=== PATIENT | male | born 1945 | race Caucasian/White ===

== ENCOUNTER → 2025-02-19 11:30 | Outpatient (REF) | payer MEDICARE, SELFPAY ==
--- OUTSIDE RECORDS SUMMARY | 2025-02-19 13:25 | XMS_ITS | Encounter Summary ---
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, including shoulder Social History Tobacco Use Types Packs/Day Years Used Date Smoking Tobacco: Never Assessed Sex and Gender Information Value Date Recorded Sex Assigned at Not on file Gender Identity Not on file Sexual Orientation Not on file documented as of this encounter Plan of Treatment Not on file documented as of this encounter Procedures Procedure Name Priority Date/Time Associated Diagnosis Comments DERMATOPATHOLOGY Routine 04/27/2023 12:0 0 AM CDT Basal cell carcinoma of skin of right upper limb, including shoulder [ICD-10-CM] documented in this encounter Results * DERMATOPATHOLOGY (04/27/2023 12:00 AM CDT) Case Report Dermatopathology Report Case: [id number] Authorizing Provider: Kar Newell MD Collected: 04/27/2023 12:00 AM Ordering Location: [facility] DermPath Lab Received: 04/28/2023 12:24 PM Pathologist: Marti Coughlin MD Specimen: Skin, right upper arm 4:20 PM CDT DERMATOPATHOLOGY LABORATORY Final Diagnosis Specimen A. 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 The specimen consists of a non-oriented ellipse of skin measuring [id number] mm. The epidermal surface is unremarkable. The margin is inked green. The 12 o'clock and 6 o'clock tips are submitted in cassette 1. The remainder of the ellipse is serially sectioned and submitted in cassette 2-3. Jar 0. 3 4:20 PM T DERMATOPATHOLOGY LABORATORY Microscopic Description Specimen A. SKIN, right upper arm: Within the dermis there are aggregates of basaloid cells with a high nuclear to cytoplasmic ratio and peripheral palisading. This lesion is not present at the margin of the specimen. There are fibroblasts and collagen bundles oriented parallel to the skin surface with elongated blood vessels, some of which are oriented perpendicular to the skin surface. In block 3, there are nests of cytologically bland melanocytes within the dermis. Some of these melanocytes are concentrated around blood vessels and adnexal structures. This lesion is present at one lateral margin of the specimen. 3 4:20 PM CDT DERMATOPATHOLOGY LABORATORY Disclaimer An external and internal positive and negative controls are appropriate for the histochemical, immunohistochemical and immunofluorescence stain(s) in this case (if any), except where stated explicitly. The performance characteristics of the stain(s) cited in this report were developed and its performance characteristic determined by the Dermatopathology Laboratory at [facility], directed by Dr. Mckay Coughlin. These tests need not be, and therefore are not, approved by the [place] Food and Drug Administration. The tests are used for clinical purposes. Billing Codes Specimen Charges Stain Charges 97005 1 3 4:20 PM CDT DERMATOPATHOLOGY LABORATORY Embedded Images 3 4:20 PM CDT DERMATOPATHOLOGY LABORATORY Pathology/Cytolog y TISSUE SPECIMEN FROM SKIN / Unknown 04/27/2023 04/28/2023 12:24 PM CDT Kar Newell MD LAB - PATHOLOGY/CYTO LOGY ORDERABLES DERMATOPATHOLOGY LABORATORY [facility] - Department of Dermatology [address] [phone] documented in this encounter Visit Diagnoses Diagnosis Basal cell carcinoma of skin of right upper limb, including shoulder Basal cell carcinoma of skin of upper limb, including shoulder documented in this encounter
--- OUTSIDE RECORDS SUMMARY | 2025-02-19 13:25 | XMS_ITS | Referral Summary ---
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 (Primary Dx); Hypertension associated with diabetes (HCC); Hyperlipidemia associated with type 2 diabetes mellitus (HCC) 01/01/2025 10:30 AM BAND TOP MAKER Office Visit [facility] Diabetes Endocrine Care at [address] [address] Freddie Yeung, Type 2 diabetes mellitus with other specified complication, without long-term current use of insulin (HCC) (Primary Dx); Hyperlipidemia associated with type 2 diabetes mellitus (HCC); Hypertension associated with diabetes (HCC) 12/25/2024 Telephone [facility] Gastroenterology at [address] [place] [address] Keenan Pretty DO 12/25/2024 8:00 AM BAND TOP MAKER Office Visit [facility] [address] [address] Arminda Andrews NP Encounter for annual wellness exam in Medicare patient (Primary Dx); Hypertension associated with type 2 diabetes mellitus (HCC); Hyperlipidemia associated with type 2 diabetes mellitus (HCC); Hypertension associated with diabetes (HCC); Type 2 diabetes mellitus without complication, without long-term current use of insulin (HCC); History of colon polyps; Obstructive sleep apnea syndrome in adult; BMI 27.0-27.9,adult 12/18/2024 8:25 AM BAND TOP MAKER Lab [facility] [address] [place] [address] Hypertension associated with type 2 diabetes mellitus (HCC); Hyperlipidemia associated with type 2 diabetes mellitus (HCC); Encounter for annual wellness exam in Medicare patient 12/15/2024 Telephone [facility] [address] [place] [address] Candace Corey MA Labs Requested for Appointment from Last 3 Months Allergies No known active allergies Medications aspirin 81 mg tablet take 1 tablet (81MG) by ORAL route every day 0 09/19/20 10 Active pen needle, diabetic 32 gauge x 1/6 needle Use as directed with victoza daily 100 each 3 10/04/20 19 Active BD Ultra-Fine Micro Pen Needle 32 gauge x 1/4 needle USE TO INJECT VICTOZA DAILY DIRECTED 100 each 3 01/14/20 23 Active blood glucose diagnostic stripIndicatio ns:Type 2 diabetes mellitus without complication, without long-term current use of insulin ([facility]) Use to test blood sugars daily 100 each 2 06/05/20 24 Active lisinopril-hyd roCHLOROthiazi de (ZESTORETIC) 20-25 mg per tabletIndicati ons:Hypertensi on associated with type 2 diabetes mellitus (HCC) TAKE 1 TABLET BY MOUTH EVERY DAY 90 tablet 3 07/28/20 24 Active carvediloL (COREG) 25 mg tablet TAKE ONE TABLET BY MOUTH TWICE A DAY WITH MEALS DIRECTED 180 tablet 1 11/28/19 25 Active clopidogreL (PLAVIX) 75 mg tablet TAKE 1 TABLET BY MOUTH EVERY DAY 90 tablet 3 12/11/19 25 Active atorvastatin (LIPITOR) 80 mg tablet TAKE 1 TABLET BY MOUTH EVERY DAY 90 tablet 3 12/21/19 25 Active ezetimibe (ZETIA) 10 mg tablet TAKE 1 TABLET BY MOUTH EVERY DAY 90 tablet 4 12/20/19 25 Active tamsulosin (FLOMAX) 0.4 mg extended release capsule TAKE 1 CAPSULE BY MOUTH EVERY DAY 90 capsule 1 12/20/19 25 Active tirzepatide (Mounjaro) 10 mg/0.5 mL pen injector injection Inject 0.5 mL (10 mg total) under the skin every 7 days 2 mL 3 12/25/[address] (PROTONIX) 40 mg EC tablet TAKE 1 TABLET BY MOUTH EVERY DAY 100 tablet 12/29/19 25 Active metFORMIN XR (GLUCOPHAGE XR) 500 mg 24 hr tablet Take 2 tablets (1,000 mg total) by mouth 2 (two) times a day after breakfast and dinner 180 tablet 3 01/01/20 25 026 Active Jardiance 25 mg tablet Take 1 tablet (25 mg total) by mouth daily 30 tablet 11 01/01/20 25 026 Active blood-glucose sensor (FreeStyle Travis 3 Sensor) device USE DIRECTED TO CHECK BLOOD GLUCOSE 3-4 TIMES DAILY. 2 each 1 02/03/20 25 Active blood-glucose sensor (FreeStyle Travis 3 Sensor) device USE DIRECTED TO CHECK BLOOD GLUCOSE 3-4 TIMES DAILY. 2 each 1 12/07/19 25 025 Discontinued Active Problems Problem Noted Date Diagnosed Date History of colon polyps 12/25/2024 Assessment & Plan (12/25/2024 8:39 AM BAND TOP MAKER): Mild anemia on labs. He is past due for colonoscopy. He states they have been reaching out to him. He is agreeable to schedule. History of colonic polyps 12/25/2024 Encounter for screening colonoscopy 12/25/2024 Chronic diastolic congestive heart failure BMI 25.0-25.9,adult 12/20/2023 Coronary artery disease invo lving assiniboine and sioux coronary artery of assiniboine and sioux heart without angina pectoris 07/07/2022 Abnormal stress test 11/26/2021 Overview (11/26/2021): Added automatically from request for surgery [id number] BMI 28.0-28.9,adult 09/15/2021 Assessment & Plan (09/15/2021 8:27 AM CDT): Discussed healthy diet and importance of regular physical activity. Encounter for annual wellness exam in Medicare p atient 09/15/2021 Assessment & Plan (12/25/2024 8:38 AM BAND TOP MAKER): Visit preventive in nature. We reviewed medications, chronic conditions, risk factors, lifestyle recommendations. Reviewed immunization recommendations. Follow-up in 6 months for chronic conditions and 1 year for annual wellness. Assessment & Plan (12/20/2023 8:34 AM BAND TOP MAKER): Visit preventive in nature. We reviewed medications, chronic conditions, risk factors, lifestyle recommendations. Reviewed immunization recommendations. Follow-up in 6 months for chronic conditions and 1 year for annual wellness. Assessment & Plan (09/15/2021 8:28 AM CDT): Preventive exam; reviewed recommended preventive screenings and vaccinations. Encourage annual flu vaccine. Wear sunscreen/protective clothing when outdoors. Trace cataracts 09/15/2021 Assessment & Plan (09/15/2021 8:27 AM CDT): Was informed that he will likely need surgical intervention, requesting referral today. Benign prostatic hyperplasia with urinary freque ncy 09/15/2021 Assessment & Plan (09/15/2021 8:38 AM CDT): Doing well on tamsulosin. Denies dysuria. Bilateral impacted cerumen 09/15/2021 Assessment & Plan (09/15/2021 8:50 AM CDT): Removed by irrigation today, patient tolerated will without complications. Hyperlipidemia associated with type 2 diabetes gavin horton 12/09/2020 Assessment & Plan (12/25/2024 8:38 AM BAND TOP MAKER): LDL 55. Continue atorvastatin and ezetimibe. Assessment & Plan (07/05/2024 9:30 AM CDT): Well controlled on atorvastatin and ezetimibe. Tolerating without side effects. No changes. Will continue to monitor. Assessment & Plan (12/20/2023 8:33 AM BAND TOP MAKER): Secondary prevention. Reviewed medications. Lipid panel ordered; will call w/results when rec'd. Denies any statin Ses. Reviewed diet/exercise recommendations. Reviewed red flags. Assessment & Plan (09/15/2021 9:43 AM CDT): Reviewed need to decrease carbs and concentrated sweets. Discussed diet and exercise recommendations. Will repeat lipid panel prior to next OV in 3 months. No changes in medications at this time. 06/2021 LDL=86 Need for vaccination 04/10/2020 Assessment & Plan (09/15/2021 8:47 AM CDT): Patient received influenza vaccine, will request records. Assessment & Plan (04/10/2020 8:33 AM CDT): Tdap ordered for this visit Gastroesophageal reflux disease without esophagi tis 01/08/2020 Assessment & Plan (09/15/2021 8:48 AM CDT): Continues omeprazole 20mg. Assessment & Plan (04/10/2020 8:30 AM CDT): Stable on current medication. Assessment & Plan (01/08/2020 11:21 AM BAND TOP MAKER): Controlled with medication and watch diet. 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 Reviewed heart healthy lifestyle. Will continue to monitor. Assessment & Plan (07/05/2024 9:22 AM CDT): Well controlled on carvedilol, lisinopril/hydrochlorothiazide. No changes. Will continue to monitor. Assessment & Plan (12/20/2023 8:33 AM BAND TOP MAKER): Normotensive. Continue multiple medication regimen. Reviewed lifestyle recommendations. Will continue to monitor. Assessment & Plan (09/15/2021 8:35 AM CDT): BP well controlled today. Reviewed BP goal <140/90. Watch sodium in diet, <2400mg. Assessment & Plan (04/10/2020 8:29 AM CDT): Stable and controlled today. Type 2 diabetes mellitus 03/31/2014 Overview (02/17/2017): DMII WO CMP NT ST UNCNTR Assessment & Plan (12/25/2024 8:37 AM BAND TOP MAKER): A1c 7.5. Unchanged. Reports high blood sugars at home. Reviewed diet and exercise recommendations. Reviewed small frequent meals. Will uptitrate Mounjaro. Will refer to endocrinology as well. Red flags reviewed. He is in agreement with plan states understanding. Assessment & Plan (07/05/2024 9:22 AM CDT): A1c has gone up. 7.5%. He is interested in up titrating Mounjaro. Hopeful it will be easier to obtain with the supply issues as well. Will monitor blood glucose closely. Red flags reviewed as well. He is in agreement with plan and states understanding. Assessment & Plan (12/20/2023 8:33 AM BAND TOP MAKER): A1c today 6.4%. Will continue current medication regimen. Recommend referral to clinical trial educator but he declines. Reviewed eating regular meals to avoid hypoglycemia. Reviewed red flags. He is in agreement with plan and states understanding. Assessment & Plan (09/15/2021 9:39 AM CDT): A1c improved. Patient not making any dietary changes. Reviewed need to reduce concentrated sweets and monitor portion sizes. No changes in medications at this time. Will continue to follow a1c. Follow up in 3 months. Lab Results Component Value Date HGBA1C 7.6 09/15/2021 HGBA1C 8.8 (H) 06/18/2021 HGBA1C 8.8 (H) 03/10/2021 Assessment & Plan (04/10/2020 8:30 AM CDT): Will await pending labs. Review diabetic diet. Assessment & Plan (01/08/2020 11:22 AM BAND TOP MAKER): Will await labs to fruit and vegetable parer response to Victoza. May consider referral to Endocrinology. Hypersomnia with sleep apnea 02/02/2012 Overview (02/17/2017): Hypersomnia with sleep apnea Obstructive sleep apnea syndrome in adult 2011 Overview (02/19/2017): Obstructive sleep apnea syndrome in adult Assessment & Plan (12/25/2024 8:38 AM BAND TOP MAKER): 100% compliant with CPAP and will continue. Assessment & Plan (09/15/2021 8:35 AM CDT): Nightly cpap use. Follows with Dr. Tong every 6 months. Resolved Problems Problem Noted Date Diagnosed Date Resolved Date Body mass index 25-29 - overweight 05/21/2016 09/15/2021 Overview (02/19/2017): Overweight (BMI 25.0-29.9) Hyperlipidemia 03/31/2014 09/15/2021 Overview (02/19/2017): HYPERLIPIDEMIA NEC/NOS Assessment & Plan (04/10/2020 8:30 AM CDT): Reviewed diet. Will continue statin. Adiposity 02/02/2012 09/15/2021 Overview (02/17/2017): Obesity Immunizations Immunization Administration Dates Next Due Influenza LAIV (Nasal) 08/16/2014,08/16/2014 Influenza, Quad, Adjuvantate d, Intramuscular 08/10/2023,08/23/2021 Influenza, Quadrivalent, Hig h Dose, Preservative Free, Intrr 08/04/2022,07/19/2020 Influenza, Quadrivalent, Spl it, Preservative Free, Intradermal 08/30/2017 Influenza, Quadrivalent, Spl it, Preservative Free, Intramuscular 10/15/2016 Influenza, Split 11/22/2013,09/19/2010 Influenza, Trivalent, Adjuva nted, Intramuscular 08/29/2017 Influenza, Trivalent, High D ose, Split, Preservative Free, Intramuscular 08/07/2024,09/01/2019,08/24/2018,08/20 Influenza, Trivalent, IM (MDV) 09/03/2015,2011 Influenza, Trivalent, Preser vative Free, Intramuscular 11/22/2013 Influenza, Unspecified 08/15/2021 Moderna SARS-CoV-2 Monovalen t Vaccination (12+ YRS) 02/17/2022,01/06/2021,12/06/2020 Pneumococcal Conjugate PCV 13 09/24/2017 Pneumococcal Conjugate, Unspecified 09/25/2019(D eferred: Patient Refused) Pneumococcal Polysaccharide PPV23 2020,06/2011 RSV Vaccine, Pref, Recombina nt, Subunit, Adjuvanted, PF, IM (Arexvy) 08/07/2024 Td, adsorbed 08/15/2007 Tdap 04/10/2020,04/10/2020 ZOSTER Recombinant 03/03/2019,08/24/2018 Social History Tobacco Use Types Packs/Day Years Used Date Smoking Tobacco: Former Cigarettes Q uit: 1970 Smokeless Tobacco: Never Tobacco Cessation:Counseling Given: Not Answered Alcohol Use Standard Drinks/Week Comments No 0 (1 standard drink = 0.6 oz pur e alcohol) Social Connection and Isolat ion Panel [NHANES] Answer Date Recorded In a typical week, how many times do you talk on the phone with family, friends, or neighbors? More than three times a week 12/08/2022 Frequency of Social Gatherin gs with Friends and Family Not on file 12/08/2022 Attends Orthodox Services Not on file 12/08 Active Member of Clubs or Organizations Not on f ile 12/08/2022 Attends Club or Organization Meetings Not on roxanne e 12/08/2022 Are you , , di vorced, , never , or living with a partner? 12/08/2022 AUDIT-C Answer Date Recorded Q1: How often do you have a drink containing alc ohol? Monthly or less 12/20/2023 Q2: How many drinks containi ng alcohol do you have on a typical day when you are drinking? 1 or 2 12/20/2023 Q3: How often do you have si x or more drinks on one occasion? Never 12/20/2023 Overall Financial Resource Strain (CARDIA) Answe r Date Recorded How hard is it for you to pa y for the very basics like food, housing, medical care, and heating? Not hard at all 11/23/2022 PHQ-2 Answer Date Recorded PHQ-2 Total Score (If total score is 3 or more points, staff should administer the PHQ-9) 0 12/25/2024 [facility] - Occupational Stress Questionnaire Answer Date Recorded Do you feel stress - tense, restless, nervous, or anxious, or unable to sleep at night because your mind is troubled all the time - these days? Patient declined 11/23/2022 Exercise Vital Sign Answer Date Recorde d On average, how many days pe r week do you engage in moderate to strenuous exercise (like a brisk walk)? 2 days 11/23/2022 On average, how many minutes do you engage in exercise at this level? 20 min 11/23/2022 Hunger Vital Sign Answer Date Recorded Within the past 12 months, y ou worried that your food would run out before you got the money to buy more. Never true 11/23/19 23 Within the past 12 months, t he food you bought just didn't last and you didn't have money to get more. Never true 11/23/2022 PRAPARE - Transportation Answer Date Re corded In the past 12 months, has l ack of transportation kept you from medical appointments or from getting medications? No 07/2023 In the past 12 months, has l ack of transportation kept you from meetings, work, or from getting things needed for daily living? No 11/23/2022 Personal Safety Answer Date Recorded Have you ever been in or are you currently in a harmful physical or emotional relationship or is someone making you feel afraid or unsafe? Denies 01/28/2024 Sex and Gender Information Value Date Recorded Sex Assigned at Not on file Legal Sex Male 11:50 PM BAND TOP MAKER Gender Identity Not on file Sexual Orientation Not on file Last Filed Vital Signs Vital Sign Reading Time Taken Comments Blood Pressure 105/67 01/29/2025 8:12 AM CDT Pulse 84 01/29/2025 8:12 AM CDT Temperature 36.3 C (97.4 F) 12/25/2024 7:46 AM BAND TOP MAKER Respiratory Rate 18 01/29/2025 8:12 AM CDT Oxygen Saturation 98% 12/25/2024 7:46 AM BAND TOP MAKER Inhaled Oxygen Concentration - - Weight 78.9 kg (174 lb) 01/29/2025 8:12 AM CDT Height 170.2 cm (5' 7 ) 01/29/2025 8:12 AM CDT Body Mass Index 27.25 01/29/2025 8:12 AM CDT Plan of Treatment Upcoming Encounters Date Type Department Care Team (Late st Contact Info) Description 04/11/2025 12:45 PM CDT Hospital Encounter [address] [address] Keenan Pretty DO [address] [place] [address] 04/11/2025 12:45 PM CDT - 04/11/2025 1:15 PM CDT Surgery [address] [address] Keenan Pretty DO [address] [place] [place] [address] COLONOSCOPY Scheduled Procedures Name Priority Associated Diagnoses Date/Ti me COLONOSCOPY History of colonic polyps Encounter for screening colonoscopy 04/11/2025 12:45 PM CDT Medical Devices Implanted Type Area Quality Facilitator Device Identifier Shelf Expiration Date Model / Serial / Lot [employer] [id number] Synergy 2.75mm 28mm 144cm Radiopaque 1 Access Port Inflation - [id number] Implanted:Qty: 1 on 11/27/2021 by Lalito Garcia MD at [facility] Other - see comments [employer] 09/10/2022 [id number] / / [id number] [employer] [id number] Angio-Seal Evolution 6fr .035in Guidewire Bypass Tube Suture - [id number] Implanted:Qty: 1 on 11/27/20[facility] [id number] / / [id number] [employer]amm[employer] Renita Angio-Seal Vip 6fr Closere Device [id number] - [id number] Implanted:Qty: 1 on 01/28/2024 [facility] 09/30/2024 [id number] / / [id number] Procedures Procedure Name Priority Date/Time Associated Diagnosis Comments EGFR Routine 12/18/2024 8:27 AM BAND TOP MAKER Hypertension associated with type 2 diabetes mellitus (HCC) Hyperlipidemia associated with type 2 diabetes mellitus (HCC) Encounter for annual wellness exam in Medicare patient DIFFERENTIAL AUTO Routine 12/18/2024 8:2 7 AM BAND TOP MAKER Hypertension associated with type 2 diabetes mellitus (HCC) Hyperlipidemia associated with type 2 diabetes mellitus (HCC) Encounter for annual wellness exam in Medicare patient CBC WITH AUTO DIFFERENTIAL Routine 12/18/2024 8:27 AM BAND TOP MAKER Hypertension associated with type 2 diabetes mellitus (HCC) Hyperlipidemia associated with type 2 diabetes mellitus (HCC) Encounter for annual wellness exam in Medicare patient COMPREHENSIVE METABOLIC PANEL Routine 12/18/2024 8:27 AM BAND TOP MAKER Hypertension associated with type 2 diabetes mellitus (HCC) Hyperlipidemia associated with type 2 diabetes mellitus (HCC) Encounter for annual wellness exam in Medicare patient LIPID PANEL Routine 12/18/2024 8:27 AM BAND TOP MAKER Hypertension associated with type 2 diabetes mellitus (HCC) Hyperlipidemia associated with type 2 diabetes mellitus (HCC) Encounter for annual wellness exam in Medicare patient HEMOGLOBIN A1C Routine 12/18/2024 8:27 AM BAND TOP MAKER Hypertension associated with type 2 diabetes mellitus (HCC) Hyperlipidemia associated with type 2 diabetes mellitus (HCC) Encounter for annual wellness exam in Medicare patient ALBUMIN CREATININE RATIO, URINE Routine 12/18/2024 8:27 AM BAND TOP MAKER Hypertension associated with type 2 diabetes mellitus (HCC) Hyperlipidemia associated with type 2 diabetes mellitus (HCC) Encounter for annual wellness exam in Medicare patient DIABETIC EYE EXAM Routine 07/04/2024 STOOL DNA COLOGUARD Routine 01/05/2022 10:00 AM BAND TOP MAKER Colon cancer screening HEPATITIS C ANTIBODY Routine 2020 10:12 AM CDT Encounter for hepatitis C screening test for low risk patient COLONOSCOPY REPORT 05/20/2017 CT ABDOMEN PELVIS W CONTRAST Routine 10/14/2016 8:35 AM BAND TOP MAKER from Last 3 Months or Most Recently Relevant to Health Maintenance Results * eGFR (12/18/2024 8:27 AM BAND TOP MAKER) eGFR 89 >=60 mL/min/1. 73 m2 Comment: Interpretive Data Reference Interval Normal >/= 90 mL/min/1.73m2 Mildly decreased* 60 - 89 mL/min/1.73m2 Mildly to moderately decreased 45 - 59 mL/min/1.73m2 Moderately to severely decreased 30 - 44 mL/min/1.73m2 Severely decreased 15 - 29 mL/min/1.73m2 Kidney Failure < 15 mL/min/1.73m2 *Relative to young adult level Estimated glomerular filtration rate is determined by the 2020 CKD-EPI equation recommended by the National Kidney Foundation (A Unifying Approach to GFR Estimation: Recommendations of the NKF-ASK Task Force on Reassessing the Inclusion of Race in Diagnosing Kidney Disease, JASN 202). The CKD-EPI equation should not be used for patients with unstable renal function and has not been validated in children and those over 70. Current interpretive data was last reviewed 2021. Testing performed by: [facility], [address] [place] [address], [place]., [address] Blood 12/18/2024 8:27 AM BAND TOP MAKER 12/18/2024 12:23 PM BAND TOP MAKER Arminda Andrews NP LAB BLOOD ORDERABLES Final Result [facility] ([place]) 1 [facility] Department [place] [address] * Differential, auto (12/18/2024 8:27 AM BAND TOP MAKER) Neutrophil abs 3.9 1.5 - 6.5 K/cumm Comment:Testing performed by : [facility], [address] [place] [address]., [id number] Imm gran abs 0.0 0.0 - 0.1 K/cumm [facility] ([place]) Comment:Testing performed by : [facility], [address] [place] [address]., [id number] Lymphocyte abs 1.2 0.8 - 3.3 K/cumm [facility] ([place]) Comment:Testing performed by : [facility], [address] [place] [address]., [id number] Monocyte abs 0.5 0.2 - 0.8 K/cumm [facility] ([place]) Comment:Testing performed by : [facility], [address] [place] [address]., [id number] Eosinophil abs 0.2 0.0 - 0.5 K/cumm [facility] ([place]) Comment:Testing performed by : [address] [id number] Basophil abs 0.1 0.0 - 0.1 K/cumm [facility] ([place]) Comment:Testing performed by : [address] [address] Neutrophil pct 65.1 % [facility] ([place]) Comment: Interpretive Data Percent cell count reference ranges are not reported, since discordance with absolute values may lead to misinterpretation of CBC data. Current Interpretive Data was last revised on 2018. Testing performed by: [facility], [address] [place] [address]., [id number] Imm gran pct 0.7 % [facility] ([place]) Comment: Interpretive Data Percent cell count reference ranges are not reported, since discordance with absolute values may lead to misinterpretation of CBC data. Current Interpretive Data was last revised on 2018. Testing performed by: [facility], [address] [place] [address]., [id number] Lymphocyte pct 20.5 % [facility] ([place]) Comment: Interpretive Data Percent cell count reference ranges are not reported, since discordance with absolute values may lead to misinterpretation of CBC data. Current Interpretive Data was last revised on 2018. Testing performed by: [facility], [address] [place] [address]., [id number] Monocyte pct 9.0 % [facility] ([place]) Comment: Interpretive Data Percent cell count reference ranges are not reported, since discordance with absolute values may lead to misinterpretation of CBC data. Current Interpretive Data was last revised on 2018. Testing performed by: [facility], [address] [place] [address]., [id number] Eosinophil pct 3.5 % [facility] ([place]) Comment: Interpretive Data Percent cell count reference ranges are not reported, since discordance with absolute values may lead to misinterpretation of CBC data. Current Interpretive Data was last revised on 2018. Testing performed by: [facility], [address] [place] [address]., [id number] Basophil pct 1.2 % [facility] ([place]) Comment: Interpretive Data Percent cell count reference ranges are not reported, since discordance with absolute values may lead to misinterpretation of CBC data. Current Interpretive Data was last revised on 2018. Testing performed by: [address] [address] Blood 12/18/2024 8:27 AM BAND TOP MAKER 12/18/2024 12:07 PM BAND TOP MAKER us Arminda Andrews NP LAB BLOOD ORDERABLES Final Result [facility] ([place]) 1 [facility] Department [place] [address] * (ABNORMAL) CBC with auto differential (12/18/2024 8:27 AM BAND TOP MAKER) WBC 6.0 3.8 - 9.9 K/cumm Comment:Testing performed by : [address], [address] Hgb 11.6(L) 13.0 - 17.5 g/dL [facility] ([place]) Comment:Testing performed by : [address] [address], [address] Hct 34.3(L) 38.9 - 50.3 % [facility] ([place]) Comment:Testing performed by : [facility], [address] [place] [address], [address] Plt 275 150 - 400 K/cumm [facility] ([place]) Comment:Testing performed by : [address], [address] MPV 10.1 9.1 - 12.3 fL [facility] ([place]) Comment:Testing performed by : [address], [address] RBC 3.48(L) 4.30 - 5.80 M/cumm [facility] ([place]) Comment:Testing performed by : [address], [address] MCV 98.6(H) 81.3 - 96.4 fL [facility] ([place]) Comment:Testing performed by : [address], [address] MCH 33.3 27.1 - 33.3 pg [facility] ([place]) Comment:Testing performed by : [address], [address] MCHC 33.8 32.3 - 35.7 g/dL [facility] ([place]) Comment:Testing performed by : [address], [address] RDW CV 12.2 11.1 - 14.9 % [facility] ([place]) Comment:Testing performed by : [address], [address] RDW SD 43.9 35.7 - 48.1 fL [facility] ([place]) Comment:Testing performed by : [address], [address] NRBC abs 0.00 0.00 - 0.01 K/cumm [facility] (LEENA) Comment:Testing performed by : [facility], [address] [place] [address]., [address] Blood 12/18/2024 8:27 AM BAND TOP MAKER 12/18/2024 12:07 PM BAND TOP MAKER Arminda Andrews DRY KILN WORKER LAB BLOOD ORDERABLES Final Result [facility] (LEENA) 1 [facility] [place] [address] * Albumin Creatinine Ratio, Urine (12/18/2024 8:27 AM BAND TOP MAKER) Albumin Ur 14.7 mg/L Comment: Interpretive Data No reference range established. Current interpretive data was last revised 2019. Testing performed by: [facility], [address] [place] [address]., [address] Creatinine Ur 198.6 mg/dL [facility] (LEENA) Comment: Interpretive Data No reference range established. Current interpretive data was last revised 2019. Testing performed by: [facility], [address] [place] [address]., [address] Albumin Creatinine Ratio, Ur 7 1 - 29 mg/g [facility] (LEENA) Comment:Testing performed by : [address] [address] Urine 12/18/2024 8:27 AM BAND TOP MAKER 12/18/2024 12:07 PM BAND TOP MAKER us Arminda Andrews DRY KILN WORKER LAB URINE ORDERABLES Final Result Performing Organization Address City/[facility]/ZIP Co de Phone Number DOMINIC [facility] (LEENA) 1 [facility] [place] [address] * (ABNORMAL) Hemoglobin A1c (12/18/2024 8:27 AM BAND TOP MAKER) Hgb A1C 7.5(H) 4.0 - 5.6 % Comment:Testing performed by : [address], [address] Estimated Average Glucose 169 mg/dL [facility] (LEENA) Comment: The ADA recommends reporting an estimated Average Glucose (eAG) with all Hemoglobin A1c results using the equation derived from a study of 507 normal and diabetic adults. Minority populations were underrepresented and children were not included. (Diabetes Care 31:2593-9986, 2008). The eAG is not equivalent to a fasting glucose. Testing performed by: [facility], [address] [place] [address], [address] Blood 12/18/2024 8:27 AM BAND TOP MAKER 12/18/2024 12:07 PM BAND TOP MAKER us Arminda Andrews NP LAB BLOOD ORDERABLES Final Result [facility] (LEENA) 1 [facility] Department [place] [address] * (ABNORMAL) Lipid panel (12/18/2024 8:27 AM BAND TOP MAKER) [facility] Cholesterol 124 30 - 199 mg/dL Comment: Interpretive Data Ages < or = 19 years Acceptable: <170 mg/dL Borderline high: 170-199 mg/dL High: >or= 200 mg/dL Ages > or = 20 years Desirable: <200 mg/dL Borderline high: 200-239 mg/dL High: >or= 240 mg/dL Literature References: 1. Expert Panel on Integrated Guidelines for Cardiovascular Health and Risk Reduction in Children and Adolescents. Pediatrics 2011;128:S213 2. NCEP Expert Panel. Circulation 2004;110:227 Current Interpretive Data was last revised on 2018. Testing performed by: [facility], [address] [place] [address]., [address] Triglycerides 230(H) <=149 mg/dL DOMINIC [facility]OTTER (LEENA) Comment: Interpretive Data Ages < or = 9 years Acceptable: <75 mg/dL Borderline high: 75-99 mg/dL High: >or= 100 mg/dL Ages 10 to 20 years Acceptable: <90 mg/dL Borderline high: 90-129 mg/dL High: >or= 130 mg/dL Ages > or = 20 years Desirable: <150 mg/dL Borderline high: 150-199 mg/dL High: 200-499 mg/dL Very high: >or= 499 mg/dL Literature References: 1. Expert Panel on Integrated Guidelines for Cardiovascular Health and Risk Reduction in Children and Adolescents. Pediatrics 2011;128:S213 2. NCEP Expert Panel. Circulation 2004;110:227 Current Interpretive Data was last revised on 2018. Testing performed by: [facility], [address] [place] [address]., [address] HDL 32(L) >=40 mg/dL [facility] ([place]) Comment: Interpretive Data Ages < or = 19 years Acceptable: >45 mg/dL Borderline low: 40-45 mg/dL Low: <40 mg/dL Ages > or = 20 years Desirable: >or= 60 mg/dL Low: <40 mg/dL Literature References: 1. Expert Panel on Integrated Guidelines for Cardiovascular Health and Risk Reduction in Children and Adolescents. Pediatrics 2011;128:S213 2. NCEP Expert Panel. Circulation 2004;110:227 Current Interpretive Data was last revised on 2018. Testing performed by: [address] [address] LDL, calculated 55 <=129 mg/dL [facility] ([place]) Comment: Interpretive Data Ages < or = 19 years Acceptable: <110 mg/dL Borderline high: 110-129 mg/dL High: >or= 130 mg/dL Ages > or = 20 years Optimal: <100 mg/dL Near optimal: 100-129 mg/dL Borderline high: 130-159 mg/dL High: >160 mg/dL Calculated using the Saleem LDL-C estimating equation. This equation was implemented on 2024. Prior to this date LDL-C was estimated using the Friedewald equation. Literature References: 1. Expert Panel on Integrated Guidelines for Cardiovascular Health and Risk Reduction in Children and Adolescents. Pediatrics 2011;128:S213 2. NCEP Expert Panel. Circulation 2004;110:227 3. Saleem Rm al. EFRAÍN Cardiol. 2020 March 15;5(5):540-548. doi: 10.1001/jamacardio.2020.0013 Current Interpretive Data was last revised on 2024. Testing performed by: [address] [address] Non-HDL Cholesterol 92 mg/dL [facility] ([place]) Comment: Interpretive Data Ages < or = 19 years Acceptable: <120 mg/dL Borderline high: 120-144 mg/dL High: >145 mg/dL Ages > or = 20 years When triglycerides are >200 mg/dL, Non-HDL cholesterol is a secondary target of therapy with treatment goals that are 30 mg/dL greater than the LDL cholesterol target. Literature References: 1. Expert Panel on Integrated Guidelines for Cardiovascular Health and Risk Reduction in Children and Adolescents. Pediatrics 2011;128:S213 2. NCEP Expert Panel. Circulation 2004;110:227 Current Interpretive Data was last revised on 2018. Testing performed by: [facility], [address] [place] [address]., [address] Chol/HDL ratio 4 BRISANE R ABBEY (LEENA) Comment:Testing performed by : [facility], [address] [place] [address]., [address] Blood 12/18/2024 8:27 AM BAND TOP MAKER 12/18/2024 12:07 PM BAND TOP MAKER Arminda Andrews DRY KILN WORKER LAB BLOOD ORDERABLES Final Result DOMINIC [facility]OTTER (MENAN) 1 [facility] Department [place] [address] * (ABNORMAL) Comprehensive metabolic panel (12/18/2024 8:27 AM BAND TOP MAKER) Sodium 136 135 - 145 mmol/L Comment:Testing performed by : [address] [address] Potassium, pl 4.1 3.3 - 4.9 mmol/L [facility] (LEENA) Comment:Testing performed by : [facility], [address] [place] [address]., [address] Chloride 100 97 - 110 mmol/L [facility] (LEENA) Comment:Testing performed by : [address] [address] CO2 23 22 - 32 mmol/L DOMINIC [facility]OTTER (LEENA) Comment:Testing performed by : [address] [address] Anion gap 13 2 - 15 mmol/L [facility] ([place]) Comment:Testing performed by : [address] [address] BUN 19 6 - 25 mg/dL [facility] ([place]) Comment:Testing performed by : [address] [address] Creatinine 0.84 0.80 - 1.30 mg/dL [facility] ([place]) Comment:Testing performed by : [address], [address] Glucose 207(H) 70 - 199 mg/dL [facility] ([place]) Comment: Interpretive Data Fasting glucose >/= 126 mg/dl is diagnostic for diabetes. Fasting is defined as no caloric intake for at least 8 hours. Fasting glucose between 100 mg/dl to 125 mg/dl is diagnostic of prediabetes. In a patient with classic symptoms of hyperglycemia or hyperglycemic crisis, a random glucose >/= 200 mg/dl is diagnostic for diabetes. In the absence of unequivocal hyperglycemia, results should be confirmed by repeat testing. The classification and Diagnosis of Diabetes Diabetes Care 2021; 46: S19-S40. Current interpretive data was last revised 2022. Testing performed by: [address] [address] Calcium 8.5 8.5 - 10.3 mg/dL [facility] ([place]) Comment:Testing performed by : [address] [address] Bilirubin, total 0.3 0.1 - 1.2 mg/dL [facility] ([place]) Comment:Testing performed by : [address] [address] Protein, pl 6.2(L) 6.5 - 8.5 g/dL [facility] ([place]) Comment:Testing performed by : [address], [address] Albumin 3.9 3.5 - 5.0 g/dL [facility] ([place]) Comment:Testing performed by : [address], [address] Alk phos 68 40 - 130 Units/L [facility] ([place]) Comment:Testing performed by : [facility], [address], [place]., [address] ALT 36 7 - 55 Units/L [facility] ([place]) Comment:Testing performed by : [facility], [address] [place] [address], [place]., [address] AST 33 10 - 50 Units/L [facility] ([place]) Comment:Testing performed by : [facility], [address] [place] [address]., [address] Blood 12/18/2024 8:27 AM BAND TOP MAKER 12/18/2024 12:07 PM BAND TOP MAKER Arminda Andrews NP LAB BLOOD ORDERABLES Final Result [facility] ([place]) 1 [facility] Department [place] [address] * Diabetic Eye Exam (07/04/2024) Historical Provider HEALTH MAINTENANCE Final Result * Stool DNA - Cologuard (01/05/2022 10:00 AM BAND TOP MAKER) Stool DNA - Cologuard Negative Negative [employer] (CLIA #:[id number]) Comment: NEGATIVE TEST RESULT. A negative Cologuard result indicates a low likelihood that a colorectal cancer (CRC) or advanced adenoma (adenomatous polyps with more advanced pre-malignant features) is present. The chance that a person with a negative Cologuard test has a colorectal cancer is less than 1 in 1500 (negative predictive value >99.9%) or has an advanced adenoma is less than 5.3% (negative predictive value 94.7%). These data are based on a prospective cross-sectional study of 10,000 individuals at average risk for colorectal cancer who were screened with both Cologuard and colonoscopy. (Amanda Osorio al, N Engl J Med 2014;370(14):2407-9387) The normal value (reference range) for this assay is negative. COLOGUARD RE-SCREENING RECOMMENDATION: Periodic colorectal cancer screening is an important part of preventive healthcare for asymptomatic individuals at average risk for colorectal cancer. Following a negative Cologuard result, the [place] [employer] Society and U.S. Multi-Society Task Force screening guidelines recommend a Cologuard re-screening interval of 3 years. References: [place] [employer] Guideline for Colorectal Cancer Screening: https://www.cancer.org/cancer/ozmds-sudjfi-bvxwwv/dbippquyb-sdoeytivw-bdfvhfe/ac s-rec ommendations.html.; Jose D GLOVER, Kandy WYNNE, Lorraine WONG, Colorectal Cancer Screening: Recommendations for Physicians and Patients from the U.S. Multi-Society Task Force on Colorectal Cancer Screening , Am J Gastroenterology 2017; 112:2118-8856. TEST DESCRIPTION: Composite algorithmic analysis of stool DNA-biomarkers with hemoglobin immunoassay. Quantitative values of individual biomarkers are not reportable and are not associated with individual biomarker result reference ranges. Cologuard is intended for colorectal cancer screening of adults of either sex, 45 years or older, who are at average-risk for colorectal cancer (CRC). Cologuard has been approved for use by the U.S. FDA. The performance of Cologuard was established in a cross sectional study of average-risk adults aged 50-84. Cologuard performance in patients ages 45 to 49 years was estimated by sub-group analysis of near-age groups. Colonoscopies performed for a positive result may find as the most clinically significant lesion: colorectal cancer [4.0%], advanced adenoma (including sessile serrated polyps greater than or equal to 1cm diameter) [20%] or non- advanced adenoma [31%]; or no colorectal neoplasia [45%]. These estimates are derived from a prospective cross-sectional screening study of 10,000 individuals at average risk for colorectal cancer who were screened with both Cologuard and colonoscopy. (Amanda Osorio al, N Engl J Med 2014;370(14):3897-0310.) Cologuard may produce a false negative or false positive result (no colorectal cancer or precancerous polyp present at colonoscopy follow up). A negative Cologuard test result does not guarantee the absence of CRC or advanced adenoma (pre-cancer). The current Cologuard screening interval is every 3 years. ([place] [employer] Society and U.S. Multi-Society Task Force). Cologuard performance data in a 10,000 patient pivotal study using colonoscopy as the reference method can be accessed at the following location: www.[employer]/results. Additional description of the Cologuard test process, warnings and precautions can be found at www.cologuard.com. Stool 01/05/2022 10:0 0 AM BAND TOP MAKER 01/06/2022 12:38 PM BAND TOP MAKER German Ricks MD LAB BODY FLUIDS AND STOOL S ORDERABLES Final Result Performing Organization Address City/[facility] Co de Phone Number [employer] (CLIA #:[id number]) [place] [address] * Hepatitis C antibody (2020 10:12 AM CDT) Hep C Ab NON-REACTI VE NON-REACT JYOTI [facility] SIGNAL TO CUT-OFF 0.01 <1.00 [facility] Comment: HCV antibody was non-reactive. There is no laboratory evidence of HCV infection. In most cases, no further action is required. However, if recent HCV exposure is suspected, a test for HCV RNA (test code 34050) is suggested. For additional information please refer to http://education.[employer]iya.Corpora/faq/UOV22b6 (This link is being provided for informational/ educational purposes only.) Blood specimen (specimen) 2020 10:12 AM CDT 2020 10:13 AM CDT Narrative [facility] - 08/22/2020 10:00 AM CDT FASTING:YES FASTING: YES us Karin Salcedo NP LAB MICROBIOLOGY - GENERAL ORDERABLES Final Result Performing Organization Address City/[facility] Co de Phone Number [facility] [address] [place] [address] * COLONOSCOPY REPORT (05/20/2017) Anatomical Region Laterality Modality Other Provider Scanning GI PROCEDURE ORDERABLES Final Result * CT Abdomen Pelvis W Contrast (10/14/2016 8:35 AM BAND TOP MAKER) Anatomical Region Laterality Modality Body N/A Computed Tomogra phy 10/14/2016 8:35 AM BAND TOP MAKER Narrative 10/14/2016 3:12 PM BAND TOP MAKER TD CT ABD/PEL W IV ONLY Acc#: [id number] DATE OF EXAM: Oct 14 2016 CLINICAL HISTORY: Right-sided abdominal pain and bloating. RESULT: PROTOCOL: Helically acquired axial images were obtained from the dome of the diaphragm to the pubic symphysis following the administration of IV contrast only. FINDINGS: The liver, spleen, pancreas, adrenals and kidneys appear normal apart from 2 small right upper pole renal cysts. The small and large bowel are nondilated. The appendix is normal. There is no evidence of ascites or adenopathy. Diffuse vascular calcification is present. The pelvic contents are normal. The lung bases are clear. IMPRESSION: 1. RIGHT UPPER POLE RENAL CYST. 2. DIFFUSE VASCULAR CALCIFICATION. 3. NO EVIDENCE OF ACUTE INTRAABDOMINAL PATHOLOGY. RESULTS CALLED TO DR. NEVAREZ AT 0843 HOURS. Interpreting Physician: DR MARYBETH SEO M.D. Read on: Oct 14 2016 8:43A Transcribed by: MANJEET On: Oct 14 2016 10:59A Approved Electronically by: GABBI Santillan, DR RUEDA on: Oct 14 2016 3:11P Attending: MICKEY NEVAREZ Requesting: MICKEY NEVAREZ Requesting Fax: -- Attending Attending ID: [id number] Requesting ID: [id number] Report To 1 ID: [id number] Report To 1 Name: MICKEY NEVAREZ Report To 1 FAX: -- NextGen Order #: Procedure Note Provider, MD Arturo - 03/22/[address] ABD/PEL W IV ONLY Acc#: [id number] DATE OF EXAM: Oct 14 2016 CLINICAL HISTORY: Right-sided abdominal pain and bloating. RESULT: PROTOCOL: Helically acquired axial images were obtained from the dome ofthe diaphragm to the pubic symphysis following the administration of IVcontrast only. FINDINGS: The liver, spleen, pancreas, adrenals and kidneys appear normalapart from 2 small right upper pole renal cysts. The small and large bowelare nondilated. The appendix is normal. There is no evidence of ascites oradenopathy. Diffuse vascular calcification is present. The pelvic contentsare normal. The lung bases are clear. IMPRESSION: 1. RIGHT UPPER POLE RENAL CYST. 2. DIFFUSE VASCULAR CALCIFICATION. 3. NO EVIDENCE OF ACUTE INTRAABDOMINAL PATHOLOGY. RESULTS CALLED TO AT 0843 HOURS. Interpreting Physician: DR MARYBETH SEO M.D. Read on: Oct 14 20168:43A Transcribed by: MANJEET On: Oct 14 2016 10:59A Approved Electronically by: GABBI Santillan, DR RUEDA on: Oct 14 20163:11P Attending: MICKEY NEVAREZ Requesting: MICKEY NEVAREZ Requesting Fax: -- Attending Attending ID: [id number] Requesting ID: [id number] Report To 1 ID: [id number] Report To 1 Name: MICKEY NEVAREZ Report To 1 FAX: -- NextGen Order #: us Historical Provider MD MI CT PROCEDURES Final R esult from Last 3 Months or Most Recently Relevant to Health Maintenance Insurance [facility] MEDICARE [facility] [place] [address] [facility] MEDICARE Advance Directives For more information, please contact: [phone] * Full Code (Latest Code Status on File) Date Activated Date Inactivated Comments 01/28/2024 2:01 PM 01/28/2024 8:23 PM * Full Code Date Activated Date Inactivated Comments 11/27/2021 11:06 AM 11/28/2021 5:02 PM Care Teams Senior Technologist Relationship Specialty Start Date End Date [place] [address] PCP - General 02/12/17
--- OUTSIDE RECORDS SUMMARY | 2025-02-19 13:25 | XMS_ITS | Clinical Summary ---
Author Organization [facility] Address [address] [place] [address] Care Team Providers Care Mineral Surveyor Name Role Phone German Ricks MD Primary Care Provider [phone] Allergies No known active allergies Medications aspirin [...] without long-term current use of insulin (HCC) Use to test blood sugars daily 100 [...] CAPSULE BY MOUTH EVERY DAY 90 capsule 12/20/19 25 Active tirzepatide (Mounjaro) 10 mg/0.5 [...] BLOOD GLUCOSE 3-4 TIMES DAILY. 2 each 02/03/20 25 Active blood-glucose sensor (FreeStyle Travis 3 Sensor) device USE DIRECTED TO CHECK BLOOD GLUCOSE 3-4 TIMES DAILY. 2 each 12/07/19 25 025 Discontinued Active Problems Problem Noted Date Diagnosed Date History of colon polyps 12/25/2024 Assessment & Plan (12/25/2024 8:39 AM PIPE JOINTS SUPERVISOR): Mild anemia on labs. He is past due for colonoscopy. He states they have been reaching out to him. He is agreeable to schedule. History of colonic polyps 12/25/2024 Encounter for screening colonoscopy 12/25/2024 Chronic diastolic congestive heart failure BMI 25.0-25.9,adult 12/20/2023 Coronary artery disease invo lving umkumiut coronary artery of umkumiut heart without angina pectoris 07/07/2022 Abnormal stress test 11/26/2021 Overview (11/26/2021): Added automatically from request for surgery [id number] BMI 28.0-28.9,adult 09/15/2021 Assessment & Plan (09/15/2021 8:27 AM CDT): Discussed healthy diet and importance of regular physical activity. Encounter for annual wellness exam in Medicare p atient 09/15/2021 Assessment & Plan (12/25/2024 8:38 AM PIPE JOINTS SUPERVISOR): Visit preventive in nature. We reviewed medications, chronic conditions, risk factors, lifestyle recommendations. Reviewed immunization recommendations. Follow-up in 6 months for chronic conditions and 1 year for annual wellness. Assessment & Plan (12/20/2023 8:34 AM PIPE JOINTS SUPERVISOR): Visit preventive in nature. We reviewed medications, [...] 12/09/2020 Assessment & Plan (12/25/2024 8:38 AM PIPE JOINTS SUPERVISOR): LDL 55. Continue atorvastatin and ezetimibe. Assessment & Plan (07/05/2024 9:30 AM CDT): Well controlled on atorvastatin and ezetimibe. Tolerating without side effects. No changes. Will continue to monitor. Assessment & Plan (12/20/2023 8:33 AM PIPE JOINTS SUPERVISOR): Secondary prevention. Reviewed medications. Lipid panel ordered; [...] medication. Assessment & Plan (01/08/2020 11:21 AM PIPE JOINTS SUPERVISOR): Controlled with medication and watch diet. 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 Reviewed heart healthy lifestyle. Will continue to monitor. Assessment & Plan (07/05/2024 9:22 AM CDT): Well controlled on carvedilol, lisinopril/hydrochlorothiazide. No changes. Will continue to monitor. Assessment & Plan (12/20/2023 8:33 AM PIPE JOINTS SUPERVISOR): Normotensive. Continue multiple medication regimen. Reviewed lifestyle recommendations. Will continue to monitor. Assessment & Plan (09/15/2021 8:35 AM CDT): BP well controlled today. Reviewed BP goal <140/90. Watch sodium in diet, <2400mg. Assessment & Plan (04/10/2020 8:29 AM CDT): Stable and controlled today. Type 2 diabetes mellitus 03/31/2014 Overview (02/17/2017): DMII WO CMP NT ST UNCNTR Assessment & Plan (12/25/2024 8:37 AM PIPE JOINTS SUPERVISOR): A1c 7.5. Unchanged. Reports high blood sugars [...] understanding. Assessment & Plan (12/20/2023 8:33 AM PIPE JOINTS SUPERVISOR): A1c today 6.4%. Will continue current medication regimen. Recommend referral to perinatal educator but he declines. Reviewed eating regular [...] diet. Assessment & Plan (01/08/2020 11:22 AM PIPE JOINTS SUPERVISOR): Will await labs to public information officer response to Victoza. May consider referral to Endocrinology. 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 [...] statin. Adiposity 02/02/2012 09/15/2021 Overview (02/17/2017): Obesity Encounters Date Type Department Care Team Description 01/29/2025 8:00 AM CDT Office Visit [facility] at [address] [place] [phone] Josiane Colvin NP Coronary artery disease involving umkumiut coronary artery of umkumiut heart without angina pectoris (Primary Dx); Hypertension associated with diabetes (HCC); Hyperlipidemia associated with type 2 diabetes mellitus (HCC) 01/01/2025 10:30 AM PIPE JOINTS SUPERVISOR Office Visit [facility] at [address] [place] [phone] Freddie Yeung, Type 2 diabetes mellitus with other specified complication, without long-term current use of insulin (HCC) (Primary Dx); Hyperlipidemia associated with type 2 diabetes mellitus (HCC); Hypertension associated with diabetes (HCC) 12/25/2024 8:00 AM PIPE JOINTS SUPERVISOR Office Visit [facility] [address] [address] Arminda Andrews NP Encounter for annual wellness exam in Medicare patient (Primary Dx); Hypertension associated with type 2 diabetes mellitus (HCC); Hyperlipidemia associated with type 2 diabetes mellitus (HCC); Hypertension associated with diabetes (HCC); Type 2 diabetes mellitus without complication, without long-term current use of insulin (HCC); History of colon polyps; Obstructive sleep apnea syndrome in adult; BMI 27.0-27.9,adult 12/25/2024 Telephone [facility] Medical [facility] at [address] [place] [phone] Keenan Pretty DO 12/18/2024 8:25 AM PIPE JOINTS SUPERVISOR Lab [facility] [address] [place] [address] Hypertension associated with type 2 diabetes mellitus (HCC); Hyperlipidemia associated with type 2 diabetes mellitus (HCC); Encounter for annual wellness exam in Medicare patient 12/15/2024 Telephone [facility] [address] [place] [address] Candace Corey MA Labs Requested for Appointment from Last 3 Months Immunizations Immunization Administration Dates Next Due Influenza [...] adsorbed 08/15/2007 Tdap 04/10/2020,04/10/2020 ZOSTER Recombinant 03/03/2019,08/24/2018 Surgical History Surgery Date Site/Laterality Comments OTHER SURGICAL HISTORY Deviated nasal septum: surgical repair OTHER SURGICAL HISTORY Mid & Ring finer tips severed: Surgical Repair KNEE ARTHROSCOPY Arthroscopy knee ORAL SURGERY had to have a tooth cut out Medical History Medical History Date Comments Deviated nasal septum Deviated n anette septum Hx Other Medical Mid & Ring fine r tips severed Hypertension Hypertension Hyperlipidemia Hyperlipidemia Malignant neoplasm of skin Cance r, skin Diabetes mellitus (HCC) Diabetes Coronary artery disease Family History Medical History Relation Name Comments Lung cancer Brother Cancer, lung; Cancer Father Cancer; Cause o f : Cancer Coronary artery disease Mother Augustine alcantara artery disease; Hypertension Mother Hypertension; Other Mother ; Cause of : Skin cancer Mother cancer, skin; Hypertension Other Family history of Hypertension; Alzheimer's disease Sister Migraines Sister Migraine; Relation Name Status Comments Brother Father Mother Other Sister Social History Tobacco Use Types Packs/Day Years [...] and Family Not on file 12/08/2022 Attends Congregational Services Not on file 12/08 Active Member [...] staff should administer the PHQ-9) 0 12/25/2024 [facility] [place] of Occupat ional Health - Occupational Stress [...] on file Legal Sex Male 11:50 PM PIPE JOINTS SUPERVISOR Gender Identity Not on file Sexual Orientation Not on file Obstetrics History Last Filed Vital Signs Vital Sign Reading Time Taken Comments Blood Pressure 105/67 01/29/2025 8:12 AM CDT Pulse 84 01/29/2025 8:12 AM CDT Temperature 36.3 C (97.4 F) 12/25/2024 7:46 AM PIPE JOINTS SUPERVISOR Respiratory Rate 18 01/29/2025 8:12 AM CDT Oxygen Saturation 98% 12/25/2024 7:46 AM PIPE JOINTS SUPERVISOR Inhaled Oxygen Concentration - - Weight 78.9 kg (174 lb) 01/29/2025 8:12 AM CDT Height 170.2 cm (5' 7 ) 01/29/2025 8:12 AM CDT Body Mass Index 27.25 01/29/2025 8:12 AM CDT Plan of Treatment Upcoming Encounters Date Type Department Care Team (Late st Contact Info) Description 04/11/2025 12:45 PM CDT Hospital Encounter [facility] [address] [place] [address] Keenan Pretty DO [address] [place] [address] [place] [address] 04/11/2025 12:45 PM CDT - 04/11/2025 1:15 PM CDT Surgery [facility] [address] [place] [address] Keenan Pretty, DO [address] [facility] [address] [place] [address] COLONOSCOPY Scheduled Procedures Name Priority Associated Diagnoses Date/Ti me COLONOSCOPY History of colonic polyps Encounter for screening colonoscopy 04/11/2025 12:45 PM CDT Health Maintenance Due Date Last Done Comments Hepatitis B Screening 1963 Covid-19 Vaccine (2023- 5 season) 2025 08/07/2024, 08/10/2023, 08/13/2022, Additional history exists Hemoglobin A1C 06/17/2025 12/18/2024, 06/15, 12/20/2023, Additional history exists Albumin Creatinine Ratio, Urine 12/18/2025 12/18/2024, 12/20/2023, 06/28/2023, Additional history exists Lipid Panel 12/18/2025 12/18/2024, 06/15, 02/21/2024, Additional history exists eGFR 12/18/2025 12/18/2024, 06/15, 01/28/2024, Additional history exists Depression Screening 12/25/2025 12/25/2024, 01/05/2024, 12/20/2023, Additional history exists Fall Risk Assessment 12/25/2025 12/25/2024, 07/05/2024, 01/05/2024, Additional history exists Foot Exam 12/25/2025 12/25/2024, 03/2024, 06/18/2021, Additional history exists Well Visit 65+ 12/25/2025 12/25/2024, 03/2024, 11/23/2022, Additional history exists Dilated Eye Exam 07/04/2026 07/04/2024, , 11/11/2021, Additional history exists DTaP/Tdap/Td Vaccine (3 - Td or Tdap) 04/10/2030 04/10/2020, 04/10/2020, 08/15/2007 Abdominal Aortic Aneurysm (A AA) Screen Completed 10/14/2016 Colon Cancer Screening-CT Colonography Discontinued 05/20/2017, 05/20/2017, 02/25/2012 Colon Cancer Screening-Colonoscopy Discontinued 05/20/2017, 05/20/2017, 02/25/2012 Colon Cancer Screening-Sigmoidoscopy Discontinued 05/20/2017, 05/20/2017, 02/25/2012 Zoster Vaccine Completed 03/03/2019, 08/24/2018 Hepatitis C Screening Completed 2020 Pneumococcal vaccine 65+ Completed 020, 09/24/2017, 04/22/2011 Colon Cancer Screening-DNA Stool Discontinued 01/05/2022, 05/20/2017, 05/20/2017, Additional history exists Colon Cancer Screening-FIT Discontinued 01/05, 05/20/2017, 05/20/2017, Additional history exists Colon Cancer Screening-FOBT Discontinued 12/17, 05/20/2017, 05/20/2017, Additional history exists Colorectal Cancer Screening Discontinued Influenza Vaccine Completed 08/07/2024, , 08/04/2022, Additional history exists Medical Devices Implanted Type Area Back Sizer Device Identifier Shelf Expiration Date Model / Serial / Lot Fever [id number] Synergy 2.75mm 28mm 144cm Radiopaque 1 Access Port Inflation - [id number] Implanted:Qty: 1 on 11/27/2021 by Lalito Garcia MD at [facility] Other - see comments [place] [employer] Renita 09/10/2022 [id number] / / [id number] Daig Renita/[employer] [id number] Angio-Seal Evolution 6fr .035in Guidewire Bypass Tube Suture - [id number] Implanted:Qty: 1 on 11/27/2021 by Lalito Garcia MD at [facility] [employer] Renita 07/15/2022 [id number] / / [id number] [employer] Renita Angio-Seal Vip 6fr Closere Device [id number] - [id number] Implanted:Qty: 1 on 01/28/2024 by Lalito Garcia MD at [facility] 09/30/2024 [id number] / / [id number] Procedures Procedure Name Priority Date/Time Associated Diagnosis Comments EGFR Routine 12/18/2024 8:27 AM PIPE JOINTS SUPERVISOR Hypertension associated with type 2 diabetes mellitus (HCC) Hyperlipidemia associated with type 2 diabetes mellitus (HCC) Encounter for annual wellness exam in Medicare patient DIFFERENTIAL AUTO Routine 12/18/2024 8:2 7 AM PIPE JOINTS SUPERVISOR Hypertension associated with type 2 diabetes mellitus (HCC) Hyperlipidemia associated with type 2 diabetes mellitus (HCC) Encounter for annual wellness exam in Medicare patient CBC WITH AUTO DIFFERENTIAL Routine 12/18/2024 8:27 AM PIPE JOINTS SUPERVISOR Hypertension associated with type 2 diabetes mellitus (HCC) Hyperlipidemia associated with type 2 diabetes mellitus (HCC) Encounter for annual wellness exam in Medicare patient COMPREHENSIVE METABOLIC PANEL Routine 12/18/2024 8:27 AM PIPE JOINTS SUPERVISOR Hypertension associated with type 2 diabetes mellitus (HCC) Hyperlipidemia associated with type 2 diabetes mellitus (HCC) Encounter for annual wellness exam in Medicare patient LIPID PANEL Routine 12/18/2024 8:27 AM PIPE JOINTS SUPERVISOR Hypertension associated with type 2 diabetes mellitus (HCC) Hyperlipidemia associated with type 2 diabetes mellitus (HCC) Encounter for annual wellness exam in Medicare patient HEMOGLOBIN A1C Routine 12/18/2024 8:27 AM PIPE JOINTS SUPERVISOR Hypertension associated with type 2 diabetes mellitus (HCC) Hyperlipidemia associated with type 2 diabetes mellitus (HCC) Encounter for annual wellness exam in Medicare patient ALBUMIN CREATININE RATIO, URINE Routine 12/18/2024 8:27 AM PIPE JOINTS SUPERVISOR Hypertension associated with type 2 diabetes mellitus (HCC) Hyperlipidemia associated with type 2 diabetes mellitus (HCC) Encounter for annual wellness exam in Medicare patient DIABETIC EYE EXAM Routine 07/04/2024 STOOL DNA COLOGUARD Routine 01/05/2022 10:00 AM PIPE JOINTS SUPERVISOR Colon cancer screening HEPATITIS C ANTIBODY Routine 2020 10:12 AM CDT Encounter for hepatitis C screening test for low risk patient COLONOSCOPY REPORT 05/20/2017 CT ABDOMEN PELVIS W CONTRAST Routine 10/14/2016 8:35 AM PIPE JOINTS SUPERVISOR from Last 3 Months or Most Recently Relevant to Health Maintenance Results * eGFR (12/18/2024 8:27 AM PIPE JOINTS SUPERVISOR) eGFR 89 >=60 mL/min/1. 73 m2 Comment: [...] of Race in Diagnosing Kidney Disease, JASN 2020). The CKD-EPI equation should not be used for patients with unstable renal function and has not been validated in children and those over 70. Current interpretive data was last reviewed 2021. Testing performed by: [facility], [address] [place] [address]., [id number] Blood 12/18/2024 8:27 AM PIPE JOINTS SUPERVISOR 12/18/2024 12:23 PM PIPE JOINTS SUPERVISOR us Arminda Andrews NP LAB BLOOD ORDERABLES Final Result BRISATSZ XOZ (LESLIE 1 [facility] [place] [address] * Differential, auto (12/18/2024 8:27 AM PIPE JOINTS SUPERVISOR) Neutrophil abs 3.9 1.5 - 6.5 K/cumm Comment:Testing performed by : [facility], [address] [place] [address]., [address] Imm gran abs 0.0 0.0 - 0.1 K/cumm [facility] ([place]) Comment:Testing performed by : [facility], [address] [place] [address]., [address] Lymphocyte abs 1.2 0.8 - 3.3 K/cumm [facility] ([place]) Comment:Testing performed by : [facility], [address] [place] [address]., [address] Monocyte abs 0.5 0.2 - 0.8 K/cumm [facility] ([place]) Comment:Testing performed by : [facility], [address] [place] [address]., [address] Eosinophil abs 0.2 0.0 - 0.5 K/cumm [facility] ([place]) Comment:Testing performed by : [facility], [address] [place] [address]., [address] Basophil abs 0.1 0.0 - 0.1 K/cumm [facility] ([place]) Comment:Testing performed by : [address] [address] Neutrophil pct 65.1 % [facility] ([place]) Comment: Interpretive Data Percent cell count reference ranges are not reported, since discordance with absolute values may lead to misinterpretation of CBC data. Current Interpretive Data was last revised on 2018. Testing performed by: [facility], [address] [place] [address]., [address] Imm gran pct 0.7 % [facility] ([place]) Comment: Interpretive Data Percent cell count reference ranges are not reported, since discordance with absolute values may lead to misinterpretation of CBC data. Current Interpretive Data was last revised on 2018. Testing performed by: [facility], [address] [place] [address]., [address] Lymphocyte pct 20.5 % [facility] ([place]) Comment: Interpretive Data Percent cell count reference ranges are not reported, since discordance with absolute values may lead to misinterpretation of CBC data. Current Interpretive Data was last revised on 2018. Testing performed by: [address] [address] Monocyte pct 9.0 % [facility] ([place]) Comment: Interpretive Data Percent cell count reference ranges are not reported, since discordance with absolute values may lead to misinterpretation of CBC data. Current Interpretive Data was last revised on 2018. Testing performed by: [address] [address] Eosinophil pct 3.5 % JULES [facility] ([place]) Comment: Interpretive Data Percent cell count reference ranges are not reported, since discordance with absolute values may lead to misinterpretation of CBC data. Current Interpretive Data was last revised on 2018. Testing performed by: [address], [address] Basophil pct 1.2 % [facility] ([place]) Comment: Interpretive Data Percent cell count reference ranges are not reported, since discordance with absolute values may lead to misinterpretation of CBC data. Current Interpretive Data was last revised on 2018. Testing performed by: [address], [address] Blood 12/18/2024 8:27 AM PIPE JOINTS SUPERVISOR 12/18/2024 12:07 PM PIPE JOINTS SUPERVISOR Arminda Andrews NP LAB BLOOD ORDERABLES Final Result DOMINIC POTTER (LESLIE) 1 [facility] Department [place] [address] * (ABNORMAL) CBC with auto differential (12/18/2024 8:27 AM PIPE JOINTS SUPERVISOR) WBC 6.0 3.8 - 9.9 K/cumm Comment:Testing performed by : [address] [address] Hgb 11.6(L) 13.0 - 17.5 g/dL [facility] ([place]) Comment:Testing performed by : [address], [address] Hct 34.3(L) 38.9 - 50.3 % [facility] ([place]) Comment:Testing performed by : [address], [address] Plt 275 150 - 400 K/cumm [facility] ([place]) Comment:Testing performed by : [address], [address] MPV 10.1 9.1 - 12.3 fL [facility] ([place]) Comment:Testing performed by : [facility], [address] [place] [address], [address] RBC 3.48(L) 4.30 - 5.80 M/cumm [facility] ([place]) Comment:Testing performed by : [address], [address] MCV 98.6(H) 81.3 - 96.4 fL [facility] ([place]) Comment:Testing performed by : [facility], [address] [place] [address], [address] MCH 33.3 27.1 - 33.3 pg [facility] ([place]) Comment:Testing performed by : [address], [address] MCHC 33.8 32.3 - 35.7 g/dL [facility] ([place]) Comment:Testing performed by : [address], [address] RDW CV 12.2 11.1 - 14.9 % [facility] ([place]) Comment:Testing performed by : [address], [address] RDW SD 43.9 35.7 - 48.1 fL [facility] ([place]) Comment:Testing performed by : [address], [address] NRBC abs 0.00 0.00 - 0.01 K/cumm [facility] ([place]) Comment:Testing performed by : [address], [address] Blood 12/18/2024 8:27 AM PIPE JOINTS SUPERVISOR 12/18/2024 12:07 PM PIPE JOINTS SUPERVISOR Arminda Andrews NP LAB BLOOD ORDERABLES Final Result [facility] ([place]) 1 [facility] Department [place] [address] * Albumin Creatinine Ratio, Urine (12/18/2024 8:27 AM PIPE JOINTS SUPERVISOR) Albumin Ur 14.7 mg/L Comment: Interpretive Data No reference range established. Current interpretive data was last revised 2019. Testing performed by: [facility], [address] [place] [address]., [address] Creatinine Ur 198.6 mg/dL [facility] ([place]) Comment: Interpretive Data No reference range established. Current interpretive data was last revised 2019. Testing performed by: [facility], [address] [place] [address]., [address] Albumin Creatinine Ratio, Ur 7 1 - 29 mg/g [facility] ([place] Comment:Testing performed by : [facility], [address] [place] [address]., [address] Urine 12/18/2024 8:27 AM PIPE JOINTS SUPERVISOR 12/18/2024 12:07 PM PIPE JOINTS SUPERVISOR Arminda Andrews NP LAB URINE ORDERABLES Final Result Performing Organization Address [facility] de Phone Number [facility] ([facility]LIE[facility] 1 [facility] Department [place] [address] * (ABNORMAL) Hemoglobin A1c (12/18/2024 8:27 AM PIPE JOINTS SUPERVISOR) [facility] Hgb A1C 7.5(H) 4.0 - 5.6 % Comment:Testing performed by : [address] [address] Estimated Average Glucose 169 mg/dL [facility] ([place]) Comment: The ADA recommends reporting an estimated Average Glucose (eAG) with all Hemoglobin A1c results using the equation derived from a study of 507 normal and diabetic adults. Minority populations were underrepresented and children were not included. (Diabetes Care 31:4443-3603, 2008). The eAG is not equivalent to a fasting glucose. Testing performed by: [address] [address] Blood 12/18/2024 8:27 AM PIPE JOINTS SUPERVISOR 12/18/2024 12:07 PM PIPE JOINTS SUPERVISOR Arminda Andrews NP LAB BLOOD ORDERABLES Final Result DOMINIC POTTER ([place]) 1 [facility] Department [place] [address] * (ABNORMAL) Lipid panel (12/18/2024 8:27 AM PIPE JOINTS SUPERVISOR) Cholesterol 124 30 - 199 mg/dL Comment: [...] last revised on 2018. Testing performed by: [facility], [address] [place] [address]., [address] Triglycerides 230(H) <=149 mg/dL [facility] ([place]) [...] last revised on 2018. Testing performed by: [facility], [address] [place] [address], [place]., [address] HDL 32(L) >=40 mg/dL [facility] POT[facility] ([place]) Comment: Interpretive Data [...] last revised on 2018. Testing performed by: [facility], [address] [place] [address]., [address] LDL, calculated 55 <=129 mg/dL [facility] ([place]) Comment: Interpretive Data [...] NCEP Expert Panel. Circulation 2004;110:227 3. Saleem Kidd et al. EFRAÍN Cardiol. 2020 March 15;5(5):540-548. doi: 10.1001/jamacardio.2020.0013 Current Interpretive Data was last revised on 2024. Testing performed by: [facility], [address] [place] [address]., [address] Non-HDL Cholesterol 92 mg/dL DOMIN[facility] POTTER ([place]) Comment: Interpretive Data [...] last revised on 2018. Testing performed by: [facility], [address] [place] [address], [place]., [address] Chol/HDL ratio 4 [facility]ULES POT[facility] ([place]) Comment:Testing performed by : [address], [address] Blood 12/18/2024 8:27 AM PIPE JOINTS SUPERVISOR 12/18/2024 12:07 PM PIPE JOINTS SUPERVISOR Arminda Andrews VERIFIER OPERATOR LAB BLOOD ORDERABLES Final Result DOMINIC POTTER (LESLIE) 1 [facility] Department [place] [address] * (ABNORMAL) Comprehensive metabolic panel (12/18/2024 8:27 AM PIPE JOINTS SUPERVISOR) Sodium 136 135 - 145 mmol/L Comment:Testing performed by : [address] [address] Potassium, pl 4.1 3.3 - 4.9 mmol/L [facility] ([place]) Comment:Testing performed by : [address], [address] Chloride 100 97 - 110 mmol/L [facility] ([place]) Comment:Testing performed by : [address], [address] CO2 23 22 - 32 mmol/L [facility] ([place]) Comment:Testing performed by : [address], [address] Anion gap 13 2 - 15 mmol/L [facility] ([place]) Comment:Testing performed by : [address], [address] BUN 19 6 - 25 mg/dL [facility] ([place]) Comment:Testing performed by : [address], [address] Creatinine 0.84 0.80 - 1.30 mg/dL [facility] Comment:Testing performed by : [address], [address] Glucose 207(H) 70 - 199 mg/dL [facility] ([facility]) Comment: Interpretive Data Fasting glucose [...] classification and Diagnosis of Diabetes Diabetes Care 202; 46: S19-S40. Current interpretive data was last revised 2022. Testing performed by: [facility], [address] [place] [address], [address] Calcium 8.5 8.5 - 10.3 mg/dL [facility] ([facility]) Comment:Testing performed by : [address], [address] Bilirubin, total 0.3 0.1 - 1.2 mg/dL [facility] ([place]) Comment:Testing performed by : [address], [address] Protein, pl 6.2(L) 6.5 - 8.5 g/dL [facility] ([place] Comment:Testing performed by : [address], [address] Albumin 3.9 3.5 - 5.0 g/dL [facility] ([place]) Comment:Testing performed by : [address], [address] Alk phos 68 40 - 130 Units/L [facility] ([facility]) Comment:Testing performed by : [address], [address] ALT 36 7 - 55 Units/L [facility] ([place]) Comment:Testing performed by : [address], [address] AST 33 10 - 50 Units/L [facility] ([place]) Comment:Testing performed by : [address], [address] Blood 12/18/2024 8:27 AM PIPE JOINTS SUPERVISOR 12/18/2024 12:07 PM PIPE JOINTS SUPERVISOR us Arminda Andrews NP LAB BLOOD ORDERABLES Final Result [facility]) [facility] Department [place] [address] * Diabetic Eye Exam (07/04/2024) us Historical Provider [facility] Final Result * Stool DNA - Cologuard (01/05/2022 10:00 AM 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 A negative Cologuard [...] (Amanda Osorio al, N Engl J Med 2014;370(14):6878-8786) The normal value (reference range) for this assay is negative. COLOGUARD RE-SCREENING RECOMMENDATION: Periodic colorectal cancer screening is an important part of preventive healthcare for asymptomatic individuals at average risk for colorectal cancer. Following a negative Cologuard result, the [employer] and U.S. Multi-Society Task Force screening guidelines recommend a Cologuard re-screening interval of 3 years. References: [employer] Guideline for Colorectal Cancer Screening: https://www.cancer.org/cancer/xixko-msgyzk-sovixg/xofbjlxqt-xhtxbxyys-btpospk/ac s-rec ommendations.html.; Jose D DK, Kandy CR, Lorraine VacaK, Colorectal Cancer Screening: Recommendations for Physicians and Patients from the U.S. Multi-Society Task Force on Colorectal Cancer Screening , Am J Gastroenterology 2017; 112:5430-7999. TEST DESCRIPTION: Composite algorithmic analysis of stool [...] (Amanda Osorio al, N Engl J Med 2014;370(14):1934-7376.) Cologuard may produce a false negative or false positive result (no colorectal cancer or precancerous polyp present at colonoscopy follow up). A negative Cologuard test result does not guarantee the absence of CRC or advanced adenoma (pre-cancer). The current Cologuard screening interval is every 3 years. ([place] and U.S. Multi-Society Task Force). Cologuard performance data in a 10,000 patient pivotal study using colonoscopy as the reference method can be accessed at the following location: www.[employer]/results. Additional description of the Cologuard test process, warnings and precautions can be found at www.[employer].com. Stool 01/05/2022 10:0 0 AM PIPE JOINTS SUPERVISOR 01/06/2022 12:38 PM PIPE JOINTS SUPERVISOR us German Ricks MD LAB BODY FLUIDS AND STOOL S ORDERABLES Final Result [facility] (CLIA #:[id number]) [place] [address] * Hepatitis C antibody (2020 10:12 AM CDT) Hep C Ab NON-REACTI VE NON-REACT JYOTI [facility] SIGNAL TO CUT-OFF 0.01 <1.00 [facility] Comment: HCV antibody was non-reactive. There is no laboratory evidence of HCV infection. In most cases, no further action is required. However, if recent HCV exposure is suspected, a test for HCV RNA (test code 90452) is suggested. For additional information please refer to http://education.[employer]/faq/YAM77c9 (This link is being provided for informational/ educational purposes only.) Blood specimen (specimen) 2020 10:12 AM CDT 2020 10:13 AM CDT Narrative [facility] - 08/22/2020 10:00 AM CDT FASTING:YES FASTING: YES Karin Salcedo NP LAB MICROBIOLOGY - GENERAL ORDERABLES Final Result [facility] [address] [place] [address] * COLONOSCOPY REPORT (05/20/2017) Anatomical Region Laterality Modality Other Provider Scanning GI PROCEDURE ORDERABLES Final Result * CT Abdomen Pelvis W Contrast (10/14/2016 8:35 AM PIPE JOINTS SUPERVISOR) Anatomical Region Laterality Modality Body N/A Computed Tomogra phy 10/14/2016 8:35 AM PIPE JOINTS SUPERVISOR Narrative 10/14/2016 3:12 PM PIPE JOINTS SUPERVISOR TD CT ABD/PEL W IV ONLY Acc#: [id number] DATE OF EXAM: Oct 14 2016 CLINICAL [...] on: Oct 14 2016 8:43A Transcribed by: TXD On: Oct 14 2016 10:59A Approved Electronically by: GABBI Santillan, DR RUEDA on: Oct 14 2016 3:11P Attending: MICKEY NEVAREZ Requesting: MICKEY NEVAREZ Requesting Fax: -- Attending Attending ID: [id number] Requesting ID: [id number] Report To 1 ID: [id number] Report To 1 Name: MICKEY NEVAREZ Report To 1 FAX: -- NextGen Order #: Procedure Note Provider, MD Arturo - 03/22/[address] ABD/PEL W IV ONLY Acc#: [id number] DATE OF EXAM: Oct 14 2016 CLINICAL [...] Read on: Oct 14 20168:43A Transcribed by: TXD On: Oct 14 2016 10:59A Approved Electronically by: DR MARYBETH SEO M.D. on: Oct 14 20163:11P Attending: MICKEY NEVAREZ Requesting: MICKEY NEVAREZ Requesting Fax: -- Attending Attending ID: [id number] Requesting ID: [id number] Report To 1 ID: [id number] Report To 1 Name: MICKEY NEVAREZ Report To 1 FAX: -- [employer] Order #: us Historical Provider MD [place] CT PROCEDURES Final R esult from Last 3 Months or Most Recently Relevant to Health Maintenance Insurance T MEDICARE AET MEDICARE AET MEDICARE Advance Directives For more information, please contact: [phone] * Full Code (Latest Code Status on File) Date Activated Date Inactivated Comments 01/28/2024 2:01 PM 01/28/2024 8:23 PM * Full Code Date Activated Date Inactivated Comments 11/27/2021 11:06 AM 11/28/2021 5:02 PM Care Teams Mineral Surveyor Relationship Specialty Start Date End Date German Ricks MD [address] [place] [address] PCP - General 02/12/17
--- OUTSIDE RECORDS SUMMARY | 2025-02-19 13:26 | XMS_ITS | Clinical Summary ---
Author Organization [facility] Address [address] [place] [address] Care Team Providers Care Store Management Trainee Name Role Phone Unavailable Primary Care Provider Unavailabl e Source Comments [facility],non-owned Affiliates and Associated Physician Practices is amultiple site organization consisting of ambulatory clinics and hospital sitesin [place], [place], [place] and [place]. This disclosure is being madepursuant to the Care Everywhere program and may not contain all information available regarding this patient. Last updated 18.[facility] [employer] Social History Tobacco Use Types Packs/Day Years Used Date Smoking Tobacco: Never Assessed Sex and Gender Information Value Date Recorded Sex Assigned at Not on file Gender Identity Not on file Sexual Orientation Not on file Plan of Treatment Health Maintenance Due Date Last Done Comments HEPATITIS C SCREENING 08/16/1963 DTAP/TDAP/TD VACCINES (1 - Tdap) 1965 PNEUMOCOCCAL VACCINE 50+ (1 of 1 - PCV) 1996 ZOSTER VACCINE (1 of 2) 1996 Respiratory Syncytial Virus (RSV) Vaccine Pt: or over 60 yrs (1 - 1-dose 75+ series) 2021 COVID-19 VACCINE ( - 2023-2 5 season) 2024 INFLUENZA VACCINE (#1) 2024 DEPRESSION SCREENING 11/15/2024 MEDICARE AWV CALENDAR YEAR 2024 HEPATITIS B VACCINE Aged Out No longe r eligible based on patient's age to complete this topic HIB VACCINE Aged Out No longer eligi ble based on patient's age to complete this topic HPV VACCINE Aged Out No longer eligi ble based on patient's age to complete this topic MENINGOCOCCAL (Group B) VACC INE SHARED DECISION-MAKING Aged Out No longer eligibl e based on patient's age to complete this topic MENINGOCOCCAL GROUPS A/C/Y/W VACCINE Aged Out No longer eligible b ased on patient's age to complete this topic
== END ==
LOC: ANHLAB 11:30
PROVIDERS: PCP Family Medicine; Visit Provider Plastic Surgery
DX: C44.612 Basal cell carcinoma of skin of right upper limb, including shoulder (principal); L98.491 Non-pressure chronic ulcer of skin of other sites limited to breakdown of skin
CPT/HCPCS: 88305